=== PATIENT | female | born 1995 | race Caucasian/White ===

== ENCOUNTER 2017-03-30 10:28 | Emergency (ER) | payer MEDICAID, OTHER | END 2017-03-30 11:20 | disposition home or self-care (01) | LOC: FTE 10:28 → E/R 11:20 | DX: J06.9 Acute upper respiratory infection, unspecified (principal) | CPT/HCPCS: 99283; Z7502 ==

== ENCOUNTER 2017-06-08 08:18 | Inpatient (IN) | payer MEDICAID ==
[2017-06-08] MEDS ORDERED: OXYTOCIN 30 UNITS/LR 500 ML IV (09:30)
[2017-06-08] MEDS ORDERED: LIDOCAINE 1% (MPF) 30 ML INJ INJ (09:30)
[2017-06-08] MEDS ORDERED: CARBOPROST 250 MCG INJ IM (09:30)
[2017-06-08] MEDS ORDERED: IBUPROFEN 600 MG TAB PO (09:30)
[2017-06-08] MEDS: LACTATED RINGER'S 1,000 ML IV ×3 (09:46→23:55)
[2017-06-08 10:16] LABS: ADD MAN DIFF? NO
[2017-06-08 10:21] LABS: BASOPHILS % 0.5 % (0.0-2.0); EOSINOPHILS # 0.1 10^3/ul (0.0-0.5); EOSINOPHILS % 0.8 % (0.0-7.0); HEMATOCRIT 37.2 % (37.0-47.0); HEMOGLOBIN 12.7 g/dl (12.0-16.0); LYMPHOCYTES # 1.6 10^3/ul (0.8-2.9); LYMPHOCYTES % 19.2 % (18.0-55.0); MEAN CORPUSCULAR HEMOGLOBIN 30.1 pg (29.0-33.0); MEAN CORPUSCULAR HGB CONC 34.1 g/dl (32.0-37.0); MEAN CORPUSCULAR VOLUME 88.2 fl (72.0-104.0); MEAN PLATELET VOLUME 10.4 fl (7.4-10.4); MONOCYTE # 0.6 10^3/ul (0.3-0.9); MONOCYTES % 6.4 % (0.0-13.0); NEUTROPHIL # 6.2 10^3/ul (1.6-7.5); NEUTROPHILS % 71.9 % (30.0-74.0); PLATELET COUNT 207 10^3/UL (140-415); RED BLOOD COUNT 4.22 10^6/ul (4.20-5.40); RED CELL DISTRIBUTION WIDTH 14.7 % (11.5-14.5)
[2017-06-08 10:21] LABS: WHITE BLOOD COUNT 8.6 10^3/ul (4.8-10.8)
[2017-06-08 10:50] LABS: INR 0.98; PROTIME 13.1 Sec (11.9-14.9)
[2017-06-08 10:51] LABS: PARTIAL THROMBOPLASTIN TIME 29.4 Sec (25.0-35.0)
[2017-06-08 11:03] LABS: AMPHETAMINE/METHAMPHETAMINE Negative (NEGATIVE); BARBITURATES Negative (NEGATIVE); BENZODIAZEPINES Negative (NEGATIVE); CANNABINOIDS Negative (NEGATIVE); COCAINE Negative (NEGATIVE); OPIATES Negative (NEGATIVE)
[2017-06-08 11:13] LABS: HEPATITIS B SURFACE ANTIGEN NEGATIVE (NEGATIVE)
[2017-06-08 15:19] LABS: RAPID PLASMA REAGIN NONREACTIVE (NR)
[2017-06-08] MEDS: DINOPROSTONE 10 MG VAG SUPP VAG (16:24)
[2017-06-09] MEDS: BUTORPHANOL 2 MG INJ IV (04:34)
[2017-06-09] MEDS: LACTATED RINGER'S 1,000 ML IV ×2 (07:02→10:51)
[2017-06-09] MEDS ORDERED: FENTAnyl 2MCG/ML-ROPIV 0.2% 100 ML (10:04)
[2017-06-09] MEDS ORDERED: ONDANSETRON 4 MG INJ IV ×2 (10:30→15:30)
[2017-06-09] MEDS ORDERED: DIPHENHYDRAMINE 50 MG INJ IV (10:30)
[2017-06-09] MEDS ORDERED: NALOXONE (0.4 MG/ML) INJ IV (10:30)
[2017-06-09] MEDS ORDERED: FENTAnyl 2MCG/ML-ROPIV 0.2% 100 ML BAG EPI (10:30)
[2017-06-09] MEDS: METHYLERGONOVINE 0.2 MG INJ IM (12:33)
[2017-06-09] MEDS: OXYTOCIN 30 UNITS/LR 500 ML IV ×3 (12:35→14:12)
[2017-06-09] MEDS: MISOPROSTOL 200 MCG TAB PR (12:38)
[2017-06-09] MEDS ORDERED: MISOPROSTOL 200 MCG TAB PR (15:30)
[2017-06-09] MEDS ORDERED: SENNA/DOCUSATE NA (8.6MG/50MG) TAB PO (15:30)
[2017-06-09] MEDS ORDERED: METHYLERGONOVINE 0.2 MG INJ IM (15:30)
[2017-06-09] MEDS ORDERED: WITCH HAZEL/GLYCERIN PAD PR (15:30)
[2017-06-09] MEDS ORDERED: ONDANSETRON 4 MG TAB PO (15:30)
[2017-06-09] MEDS ORDERED: OXYTOCIN 30 UNITS/LR 500 ML IV (15:30)
[2017-06-09] MEDS ORDERED: CARBOPROST 250 MCG INJ IM (15:30)
[2017-06-09] MEDS ORDERED: BENZOCAINE 20% 56 ML SPRAY TOP (15:30)
[2017-06-09] MEDS: IBUPROFEN 600 MG TAB PO (18:02)
[2017-06-09] MEDS: SENNA/DOCUSATE NA (8.6MG/50MG) TAB PO (20:58)
[2017-06-09] MEDS: MAGNESIUM HYDROXIDE 30ML CUP PO (20:58)
[2017-06-10] MEDS: IBUPROFEN 600 MG TAB PO ×5 (00:47→23:39)
[2017-06-10 09:02] LABS: ADD MAN DIFF? NO
[2017-06-10 09:04] LABS: WHITE BLOOD COUNT 10.4 10^3/ul (4.8-10.8)
[2017-06-10 09:04] LABS: BASOPHILS % 0.3 % (0.0-2.0); EOSINOPHILS # 0.1 10^3/ul (0.0-0.5); EOSINOPHILS % 0.5 % (0.0-7.0); HEMATOCRIT 30.5 % (37.0-47.0); HEMOGLOBIN 10.4 g/dl (12.0-16.0); LYMPHOCYTES # 1.8 10^3/ul (0.8-2.9); LYMPHOCYTES % 17.7 % (18.0-55.0); MEAN CORPUSCULAR HEMOGLOBIN 29.9 pg (29.0-33.0); MEAN CORPUSCULAR HGB CONC 34.1 g/dl (32.0-37.0); MEAN CORPUSCULAR VOLUME 87.6 fl (72.0-104.0); MEAN PLATELET VOLUME 10.3 fl (7.4-10.4); MONOCYTES % 9.2 % (0.0-13.0); NEUTROPHIL # 7.4 10^3/ul (1.6-7.5); NEUTROPHILS % 71.3 % (30.0-74.0); PLATELET COUNT 185 10^3/UL (140-415); RED BLOOD COUNT 3.48 10^6/ul (4.20-5.40); RED CELL DISTRIBUTION WIDTH 14.6 % (11.5-14.5)
[2017-06-10] MEDS: MAGNESIUM HYDROXIDE 30ML CUP PO ×2 (09:18→20:58)
[2017-06-10] MEDS: SENNA/DOCUSATE NA (8.6MG/50MG) TAB PO ×2 (09:19→20:58)
[2017-06-10] MEDS: DIBUCAINE 1% 30 GM OINT PR (09:36)
[2017-06-11] MEDS: IBUPROFEN 600 MG TAB PO ×3 (06:25→18:00)
[2017-06-11] MEDS: MAGNESIUM HYDROXIDE 30ML CUP PO (10:02)
[2017-06-11] MEDS: SENNA/DOCUSATE NA (8.6MG/50MG) TAB PO (10:02)
== END 2017-06-11 18:30 | disposition home or self-care (01) | DRG 775 ==
LOC: L-D 06-09 07:29 → PP1 06-09 17:37
PROVIDERS: Obstetrics & Gynecology
PROC: 10D07Z6 Extraction of Products of Conception, Vacuum, Via Natural or Artificial Opening (ICD-10-PCS; principal; 2017-06-09)
PROC: 0KQM0ZZ Repair Perineum Muscle, Open Approach (ICD-10-PCS; 2017-06-09)
PROC: 3E033VJ Introduction of Other Hormone into Peripheral Vein, Percutaneous Approach (ICD-10-PCS; 2017-06-09)
DX: O48.0 Post-term pregnancy (principal); Z3A.41 41 weeks gestation of pregnancy; O70.0 First degree perineal laceration during delivery; O99.214 Obesity complicating childbirth; E66.9 Obesity, unspecified; Z68.34 Body mass index [BMI] 34.0-34.9, adult; Z37.0 Single live birth
CPT/HCPCS: 62319; 76815; 80307; 85025; 85610; 85730; 86592; 86850; 86900; 86901; 87340; 99464